=== PATIENT | female | born 1950 | race Caucasian/White ===

== ENCOUNTER 2023-12-30 09:30 | Outpatient (CLI) | payer MEDICARE ==
[2023-12-30] MEDS ORDERED: E-Z-HD 98% W/W 340GM BOT (x-ray ONLY) ONE (09:52)
[2023-12-30] MEDS ORDERED: Barium Sulfate 96% 176 GM BOT (xray ONLY) ONE (09:52)
== END 2023-12-30 09:31 | disposition home or self-care (01) ==
LOC: RAD 09:30
PROVIDERS: ATTEND Physician Assistant Medical
DX: K21.9 Gastro-esophageal reflux disease without esophagitis (principal); M94.0 Chondrocostal junction syndrome [Tietze]; F41.9 Anxiety disorder, unspecified; R14.2 Eructation; R07.89 Other chest pain; K44.9 Diaphragmatic hernia without obstruction or gangrene; Z98.890 Other specified postprocedural states
CPT/HCPCS: 74246

== ENCOUNTER 2024-01-22 07:23 | Outpatient (CLI) | payer MEDICARE | END 2024-01-22 07:24 | disposition home or self-care (01) | LOC: NM 07:23 | PROVIDERS: ATTEND Physician Assistant Medical | DX: K21.9 Gastro-esophageal reflux disease without esophagitis (principal); K44.9 Diaphragmatic hernia without obstruction or gangrene; F41.9 Anxiety disorder, unspecified; R14.2 Eructation | CPT/HCPCS: 78264; A9541 ==